=== PATIENT | female | born 1985 | race Hispanic/Latino ===

== ENCOUNTER 2025-04-24 12:48 | Emergency (ER) | payer SELFPAY ==
[~2025-04-24] VITALS: Ht 162.6 cm; Wt 116.1 kg
--- NOTE | 2025-04-24 13:19 | EKG ---
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
[2025-04-24 13:28] LABS: IMMATURE GRANULOCYTE ABSOLUTE 0.04 K/uL (0-1); NUCLEATED RED BLOOD CELLS 0.3 % (0.0-0.19); PLATELET COUNT (AUTO) 493 K/uL (130-400); RED BLOOD CELL COUNT(AUTO) 2.89 MIL/uL (4.00-5.50); RED CELL DISTRIBUTION WIDTH 17.2 % (11.0-15.5); WHITE BLOOD COUNT (AUTO) 6.6 K/uL (4.8-10.8)
[2025-04-24 13:31] LABS: CREATININE 0.7 mg/dL (0.5-1.0); GLOMERULAR FILTR. RATE CALC 113.0 mL/min (>90); GLUCOSE,RANDOM 124.0 mg/dL (70-105); SODIUM SERUM 141.0 mmol/L (136-145); UREA NITROGEN, BLOOD 10.0 mg/dL (7-18)
--- NOTE | 2025-04-24 13:39 | ERN ---
ED Note History of Present Illness Stated Complaint: VAGINAL BLEEDING AND SYNCOPE Chief Complaint: Vaginal Problems/Bleeding Time Seen by MD: 12:57 Time Seen by Midlevel: 13:00 Dictation: 39-year-old female coming in complaining of vaginal bleeding, weakness in syncopal episode earlier today. Patient states he has been having vaginal bleeding since February. Patient states she sees to cleaned again with the put her on the Depo shot that is every three months. Patient states she went to the swelling he got yesterday for feeling fatigued and short of breath, they chano lab work and told her to report to the hospital for low hemoglobin. Allergies: Coded Allergies: No Known Allergies (Unverified Allergy, Unknown, 04/24/25) Past Medical History Past Medical History: Diabetes-Type II Surgical History: Other Review of System Dictation Constitutional: Negative for fever,chills, and weight loss Eyes: Negative for injury, pain,redness, and discharge ENT: Negative for injury,pain or swelling Cardiovascular: Negative for chest pain, palpitations, and edema Respiratory: Complaining of shortness a breath on exertion, no cough or wheezing Abdomen/GI: Negative for abdominal pain, nausea, vomiting, diarrhea, and constipation Back: Negative for injury and pain : Negative for injury, bleeding and discharge MS/Extremity: Negative for injury and deformity Skin: Negative for rash, and discoloration Neuro: Negative for headache, weakness, numbness, tingling, and seizure Psych: Negative for suicide ideation, homicidal ideation, and hallucinations Review of Systems: was completed Initial Vital Sign VS Vital Signs Date Time Temp Pulse Resp B/P (MAP) Pulse Ox O2 Delivery O2 Flow Rate FiO2 04/24/25 12:51 98.4 93 20 143/71 99 Room Air 04/24/25 14:30 0 21 Physical Exam Dictation General: awake, alert, NAD Head/Face: Normocephalic, atraumatic Eyes: PERRL, EOMI, vision at baseline ENT: oral cavity clear, TMs clear, no signs of infection Neck: Trachea midline, supple, no nuchal rigidity Cardiovascular: RRR, normal S1/S2, No MRGs, no JVD Respiratory: CTAB, no respiratory distress, No rales or wheezes Abdomen: Soft, non-tender, non-distended, normal bowel sounds, no guarding or rebound. Skin: Warm, dry, normal turgor, no rash MS/Extremity: Pulses equal, no cyanosis, neurovascular intact, FROM Neuro: COAx4, GCS 15, strength 5/5, CN 2-12 intact, normal cerebellar exam, normal gait, Psych: Normal behavior, mood, and affect normal Results (Laboratory/Radiology) Laboratory/Radiology Laboratory Tests Test 04/24/25 13:16 04/24/25 21:22 White Blood Count 6.6 K/uL (4.8-10.8) Red Blood Count 2.89 MIL/uL (4.00-5.50) L Hemoglobin 6.2 g/dL (12.0-16.0) *L 8.1 g/dL (12.0-16.0) #L Hematocrit 22.0 % (36-48) L 26.9 % (36-48) #L Mean Corpuscular Volume 76.1 fL (79-99) L Mean Corpuscular Hemoglobin 21.5 pg (27.0-33.0) L Mean Corpuscular Hemoglobin Concent 28.2 g/dL (32.0-36.0) L Red Cell Distribution Width 17.2 % (11.0-15.5) H Platelet Count 493 K/uL (130-400) H Mean Platelet Volume 9.0 fL (7.5-10.5) Immature Granulocyte % (Auto) 0.6 % (0-1) Neutrophils (%) (Auto) 47.4 % (40.0-77.0) Lymphocytes (%) (Auto) 35.4 % (21.0-51.0) Monocytes (%) (Auto) 9.8 % (3.0-13.0) Eosinophils (%) (Auto) 5.9 % (0.0-8.0) Basophils (%) (Auto) 0.9 % (0.0-5.0) Neutrophils # (Auto) 3.1 K/uL (1.8-7.7) Lymphocytes # (Auto) 2.3 K/uL (1.0-4.8) Monocytes # (Auto) 0.7 K/uL (0.1-1.0) Eosinophils # (Auto) 0.39 K/uL (0.00-0.70) Basophils # (Auto) 0.06 K/uL (0.00-0.20) Absolute Immature Granulocyte (auto 0.04 K/uL (0-1) Nucleated Red Blood Cells 0.3 % (0.0-0.19) H Red Blood Cell Morphology See comments Sodium Level 141 mmol/L (136-145) Potassium Level 3.6 mmol/L (3.5-5.1) Chloride Level 107 mmol/L (101-111) Carbon Dioxide Level 26 mmol/L (21-32) Blood Urea Nitrogen 10 mg/dL (7-18) Creatinine 0.7 mg/dL (0.5-1.0) Glomerular Filtration Rate Calc 113 mL/min (>90) Random Glucose 124 mg/dL (70-105) H Total Calcium 8.9 mg/dL (8.5-10.1) Human Chorionic Gonadotropin, Quant 0 mIU/mL (0-5) Labs Reviewed?: Yes EKG Comment: EKGs did not at 1:16 p.m.. Rate of 86. Sinus rhythm. No STEMI interpreted by ER Ultrasound Comment: [place] [id number] [place] [id number] IMAGING REPORT Signed PATIENT: HELDER STEWART MR#: [id number] : 1985 SEX: F AGE: 39 LOCATION: [facility] ORDER 14 STATUS: REG ER REPORT#: [id number] SERVICE 12 REASON: vaginal bleeding ORDERING PHYSICIAN: PATRICIA BRINK CNP PROCEDURE: PELVCOMP - US PELVIC NON-OB COMP EXAM: US Pelvis, Complete. CLINICAL HISTORY: vaginal bleeding TECHNIQUE: Transvaginal and transabdominal pelvic ultrasound (complete) with image documentation. COMPARISON: None provided. FINDINGS: ENDOMETRIUM: Not visualized. UTERUS/CERVIX: The uterus measures 17.1 x 8.3 x 10 cm. A large intramural fibroid measuring 8.2 x 7.8 x 7.5 cm is noted within the body of the uterus. A subserosal fibroid measuring 3 x 3.2 x 2.9 cm is noted at the fundus. RIGHT OVARY: Measures 4 x 2.2 x 2.7 cm. Bilateral ovarian vascularity is preserved. No abnormal mass identified. LEFT OVARY: Measures 2.3 x 2.5 x 2.8 cm. Bilateral ovarian vascularity is preserved. No abnormal mass identified. FREE FLUID: No free fluid. IMPRESSION: Large intramural fibroid in the body of the uterus and a subserosal fibroid at the fundus. Ovaries are normal with preserved vascularity. Endometrium not visualized. /[place] DICTATED BY: SHAWNA GARZA Jr., MD DATE: 04/24/251701 ELECTRONICALLY SIGNED BY: SHAWNA GARZA Jr., MD DATE: 04/24/251701 ED Course ED Course Orders Procedure Category Date Status Time Cbc With Differential LAB 04/24/25 Complete 13:04 Basic Metabolic Panel LAB 04/24/25 Complete 13:04 Type And Screen BBK 04/24/25 Complete 13:04 Hcg,Quantitative LAB 04/24/25 Complete 13:04 12 Lead Ekg Tracing- EKG 04/24/25 Complete Technical 13:12 Rbc-Active Bleeding BBK 04/24/25 Complete 13:38 Us Pelvic Non-Ob Comp US 04/24/25 Resulted 15:13 Hemoglobin And LAB 04/24/25 Complete Hematocrit 21:06 Vital Signs Date Time Temp Pulse Resp B/P (MAP) Pulse Ox O2 Delivery O2 Flow Rate FiO2 04/24/25 21:15 99.1 84 18 140/72 98 Room Air* 0 04/24/25 20:38 99.1 88 18 118/57 98 Room Air* 0 04/24/25 17:51 99.1 86 18 119/60 100 Room Air* 0 04/24/25 16:11 99.7 86 18 120/94 98 Room Air* 0 04/24/25 14:30 98.4 88 18 112/71 99 Room Air* 0 04/24/25 12:51 98.4 93 20 143/71 99 Room Air Medical Decision Making MDM MDM: 39-year-old female coming in complaining of vaginal bleeding, weakness in syncopal episode earlier today. Patient states he has been having vaginal bleeding since February. Patient states she sees to cleaned again with the put her on the Depo shot that is every three months. Patient states she went to the swelling he got yesterday for feeling fatigued and short of breath, they chano lab work and told her to report to the hospital for low hemoglobin. CBC shows no leukocytosis, microcytic anemia hemoglobin of 6.2 hematocrit of 22. 2 units of PRBC's ordered. Chemistry shows no electrolyte abnormality. HCG quant -0. Ultrasound of the pelvis areas so a large intramural fibroid in the body of the uterus and a subserosal fibroid at the fundus. Patient will be transferred for higher level of care for OBGYN consultation, symptomatic anemia. Patient states every time she does not need sudden movements she feels dizzy, and she has a has a breath on exertion. BP has been in the soft 72705 over 56. 1458 Pelvic exam done with the primary nurse at bedside. No active bleeding noted. Dry Kotex noted. [address] Jovan Rowe from [facility], discussed imaging in lab work expressed my concern patient having the large uterine fibroid and vaginal bleeding and low H&H and also that the patient has a syncopal episode earlier today. However stated patient does not need to be transferred . You gave him 2 units of blood, gave her a Depo shot IM, repeat the H&H after the 2 units. Went to talk to patient regarding the new information.221 REPEAT HEMOGLOBIN IS 8. V/S stable, bp 140s. Since in his talk with the patient and educated that she needs to follow up back with the cleaned educated referral for an OBGYN consult to have a definite treatment for the fibroids and anemia. Educated on signs and symptoms of when to return back to the emergency room. Patient verbalized understanding, answered all questions. Differential diagnosis: Anemia, AUB, fibroids, ectopic Rationale: Tests considered and ordered secondary to shared decision making include: labs, ECG and radiology Previous outside records reviewed: Old ER visits. Risk of complication and/or morbidity or mortality of patient management: None Medications-Per medication reconciliation Need for hospitalization: Patient does meet criteria for hospitalization. Need for emergency major/minor surgery: No There are no social concerns with this patient. Prescription drug management Prescriptions will include symptomatic care Patient's prior external medical records from other ER visits were reviewed by me as indicated. Prior testing and results from previous visits were reviewed. Prior tests were taken into account with medical decision making and resource utilization, independent historian/historians were used to obtain complete medical history. I independently interpreted the test that were performed, results were reviewed by me and considered findings on radiology if ordered. Medical management and examination interpretation discussions were had by me with other qualified healthcare professionals as indicated for the patient's care. Critical Care Note Critical Time: 30 minutes (Blood transfusion needed 2 units for low hemoglobin of 6.2.) DX & DISP Disposition: Transfer Departure Impression: Primary Impression: Anemia requiring transfusions Additional Impressions: Uterine fibroid, Abnormal uterine bleeding (AUB) Condition: Stable Additional Instructions: Follow up with Allison Tavera in 1-[address] Patrick schulte for a OBGYN consult. If you have any worsening symptoms please return back to the emergency room. Referrals: MIGUEL ROGEL MD Time of Disposition: 22:14 I have reviewed the case, and I agree with, Diagnosis and Plan PATRICIA BRINK [facility] Apr 24, 2025 13:39
[2025-04-24 13:42] LABS: HCG,QUANTITATIVE 0.0 mIU/mL (0-5)
--- NOTE | 2025-04-24 16:03 | HMCIMG ---
EXAM: US Pelvis, Complete. CLINICAL HISTORY: vaginal bleeding TECHNIQUE: Transvaginal and transabdominal pelvic ultrasound (complete) with image documentation. COMPARISON: None provided. FINDINGS: ENDOMETRIUM: Not visualized. UTERUS/CERVIX: The uterus measures 17.1 x 8.3 x 10 cm. A large intramural fibroid measuring 8.2 x 7.8 x 7.5 cm is noted within the body of the uterus. A subserosal fibroid measuring 3 x 3.2 x 2.9 cm is noted at the fundus. RIGHT OVARY: Measures 4 x 2.2 x 2.7 cm. Bilateral ovarian vascularity is preserved. No abnormal mass identified. LEFT OVARY: Measures 2.3 x 2.5 x 2.8 cm. Bilateral ovarian vascularity is preserved. No abnormal mass identified. FREE FLUID: No free fluid. IMPRESSION: Large intramural fibroid in the body of the uterus and a subserosal fibroid at the fundus. Ovaries are normal with preserved vascularity. Endometrium not visualized. /[place]
--- NOTE | 2025-04-24 16:05 | NUR ---
BLOOD TRANSFUSION COMMENCED,SEE TRANSFUSION DOCUMENT.
--- NOTE | 2025-04-24 17:18 | NUR ---
SPOKE TO MARGARET WANG [facility] IN REGARDS TO PT TRANSFER.
--- NOTE | 2025-04-24 19:08 | NUR ---
SECOND UNIT OF RBC. H&H 2 HOURS AFTER FINISHING.
--- NOTE | 2025-04-24 20:51 | NUR ---
TRANSFER PT. ACCEPTED @ 192 BY TIFFANY WEST MD FOR TRANSFER TO [facility]. ROOM ASSIGNMENT AT THIS TIME: 423. REPORT: [id number] Addendum: 04/24/25 at 2211 by BUCK VOGT RN RN DISREGARD: INCORRECT PATIENT
--- NOTE | 2025-04-24 21:02 | NUR ---
TRANSFER CALL PLACED TO [facility] TO INITIATE TRANSFER FOR [employer] Addendum: 04/24/25 at 2220 by BUCK VOGT RN RN DISREGARD: INCORRECT PATIENT
--- NOTE | 2025-04-24 21:15 | NUR ---
2ND UNIT OF PRBCS COMPLETED AT THIS TIME, PATIENT IS IN NO DISTRESS
[2025-04-24 22:25] VITALS: BP 136/76; PULSE 80; RESP 18; TEMP 98.9; O2SAT 99
== END 2025-04-24 22:27 | disposition home or self-care (01) ==
LOC: EDH 12:48
DX: D64.9 Anemia, unspecified (principal); D25.9 Leiomyoma of uterus, unspecified; E11.9 Type 2 diabetes mellitus without complications
CPT/HCPCS: 99291; 36430; 76856; 80048; 84702; 85025; 86850; 86900; 86901; 86923; 36415; 93005; 85018; 85014; P9016 ×2